=== PATIENT | female | born 1985 | race Caucasian/White ===

== ENCOUNTER 2018-01-29 19:49 | Emergency (ER) | payer OTHER, SELFPAY ==
[2018-01-29] MEDS ORDERED: KETOROLAC 30 MG/ML INJ ONE (20:32)
[2018-01-29] MEDS ORDERED: ONDANSETRON 4 MG/2 ML VIAL ONE (20:32)
[2018-01-29] MEDS ORDERED: PANTOPRAZOLE 40 MG INJ ONE (20:32)
[2018-01-29] MEDS ORDERED: NA CHLORIDE 0.9% 1,000 ML ONE (20:33)
[2018-01-29 20:34] LABS: Absolute Lymphocytes (CBC) 1.4 K/uL (0.7-4.9); Absolute Monocytes 0.6 K/uL (0.1-1.3); Absolute Neutrophil 10.6 K/uL (1.8-8.0); Basophils % 0.2 % (0-1.3); Eosinophils % 0.2 % (0-4.4); Hematocrit 40.3 % (36.0-45.0); Lymphocytes % 11.1 % (15.3-44.8); MCV 81.5 fL (80-100); MPV 8.6 fL (7.6-11.3); Monocytes % 4.5 % (3.3-12.3); RBC Red Blood Cell Count 4.95 M/uL (3.86-4.86)
--- NOTE | 2018-01-29 20:46 | RAD REPORT ---
EXAM DESCRIPTION: US - Abdomen Exam Limited - 01/29/2018 8:40 pm CLINICAL HISTORY: ABD PAIN COMPARISON: No comparisons FINDINGS: The gallbladder demonstrates distention with multiple stones. No pericholecystic fluid or gallbladder wall thickening. The common bile duct is normal measuring 7 mm, mildly enlarged. The liver demonstrates no findings of intrahepatic biliary dilatation. IMPRESSION: Gallbladder distension with cholelithiasis. 7 mm common bile duct, mildly prominent. Followup MRCP would be recommended to evaluate for choledoch olithiasis.
[2018-01-29 20:52] LABS: Albumin 4.3 g/dL (3.4-5.0); Bilirubin Direct 0.9 mg/dL (0-0.2); Bilirubin Total 1.8 mg/dL (0.2-1.0); Potassium 4.1 mmol/L (3.5-5.1); Protein, Total 8.1 g/dL (6.4-8.2)
--- NOTE | 2018-01-29 21:15 | ER ---
Nurse's Notes [facility] Name: Britney Stallworth Age: 33 yrs Sex: Female : 1985 Arrival Date: 01/29/2018 Time: 19:51 Bed 14 Private MD: None, None Diagnosis: Choledocholithiasis Presentation: 01/29 20:04 Presenting complaint: Patient states: Nausea, vomiting, and epigastric pain since noon aj1 today. Denies diarrhea. Denies fever. Transition of care: patient was not received from another setting of care. Onset of symptoms was January 29, 2018 at 12:00. Risk Assessment: Do you want to hurt yourself or someone else? Patient reports no desire to harm self or others. Initial Sepsis Screen: Does the patient meet any 2 criteria? No. Patient's initial sepsis screen is negative. Does the patient have a suspected source of infection? No. Patient's initial sepsis screen is negative. Care prior to arrival: None. 20:04 Method Of Arrival: Ambulatory aj1 20:04 Acuity: MAYTE 3 aj1 Triage Assessment: 20:05 General: Appears in no apparent distress. uncomfortable, Behavior is calm, cooperative, aj1 appropriate for age. Pain: Complains of pain in epigastric area Pain currently is 6 out of 10 on a pain scale. Neuro: Level of Consciousness is awake, alert, obeys commands. Cardiovascular: Patient's skin is warm and dry. Respiratory: Airway is patent Respiratory effort is even, unlabored, Respiratory pattern is regular, symmetrical. GI: Reports upper abdominal pain, nausea, vomiting, Patient currently denies diarrhea. 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 - Social history:: Smoking status: Patient/guardian denies using tobacco. - Ebola Screening: : Patient denies travel to an Ebola-affected area in the 21 days before illness onset. Screenin:32 Abuse screen: Denies threats or abuse. Denies injuries from another. Nutritional ak1 screening: No deficits noted. Tuberculosis screening: No symptoms or risk factors identified. Fall Risk None identified. Assessment: 20:33 General: Appears uncomfortable, Behavior is calm, cooperative. Pain: Complains of pain ak1 in right upper quadrant and abdomen and epigastric area. Neuro: No deficits noted. Cardiovascular: No deficits noted. Respiratory: No deficits noted. GI: Abdomen is flat, Bowel sounds present X 4 quads. Reports epigastric pain, nausea, vomiting, since noon today. : No signs and/or symptoms were reported regarding the genitourinary system. EENT: No signs and/or symptoms were reported regarding the EENT system. Derm: No signs and/or symptoms reported regarding the dermatologic system. Musculoskeletal: No signs and/or symptoms reported regarding the musculoskeletal system. 20:57 Reassessment: Patient appears in no apparent distress at this time. No changes from ak1 previously documented assessment. Patient is alert, oriented x 3, equal unlabored respirations, skin warm/dry/pink. 20:59 Reassessment: ERP at bedside, pt informed of transfer status, pt crying. will continue ak1 to monitor. 21:48 Reassessment: report given to [facility]. ak1 Vital Signs: 20:05 BP 111 / 52; Pulse 78; Resp 16; Temp 98.5; Pulse Ox 100% on R/A; Height 5 ft. 2 in. aj1 (157.48 cm) (R); Pain 6/10; 20:30 BP 144 / 81; Pulse 85; Resp 18; Temp 98.4; Pulse Ox 100% on R/A; ak1 21:00 BP 147 / 75; Pulse 94; Resp 18; Temp 98.3(O); Pulse Ox 100% on R/A; Pain 2/10; ak1 21:21 BP 119 / 74; Pulse 80; Resp 18; Temp 98.3(O); Pulse Ox 100% on R/A; Pain 2/10; ak1 21:28 Weight 49.9 kg (R); ak1 21:28 Body Mass Index 20.12 (49.90 kg, 157.48 cm) ak1 ED Course: 19:51 Patient arrived in ED. es 19:51 None, None is Private Physician. es 20:05 Triage completed. aj1 20:05 Arm band placed on Patient placed in an exam room. aj1 20:08 Syeda David, RN is Primary Nurse. ak1 20:08 [facility]rera [facility]C [facility]. kb 20:08 Raffi Dumont MD is Attending Physician. kb 20:24 Initial lab(s) drawn, by pa, sent to lab. Urine collected: clean catch specimen. ak1 Inserted saline lock: 20 gauge in left antecubital area, using aseptic technique. Blood collected. 20:32 No provider procedures requiring assistance completed. ak1 20:33 Patient has correct armband on for positive identification. Placed in gown. Bed in low ak1 position. Call light in reach. Side rails up X 1. Pulse ox on. NIBP on. Door closed. Lights dimmed. Warm blanket given. 20:41 US Abdomen Limited In Process Unspecified. EDMS 20:58 Patient transferred, IV remains in place. ak1 Administered Medications: 20:31 Drug: ProTONIX 40 mg Route: IVP; Site: left antecubital; ak1 20:45 Follow up: Response: No adverse reaction ak1 20:32 Drug: Zofran 4 mg Route: IVP; Site: left antecubital; ak1 20:45 Follow up: Response: No adverse reaction ak1 20:32 Drug: TORadol 30 mg Route: IVP; Site: left antecubital; ak1 20:45 Follow up: Response: No adverse reaction ak1 20:43 Drug: NS 0.9% 1000 ml Route: IV; Rate: 1000 ml; Site: left antecubital; ak1 21:49 Follow up: IV Status: Completed infusion ak1 Outcome: 20:58 Condition: stable ak1 20:58 Instructed on the need for transfer. 21:15 ER care complete, transfer ordered by . kb 21:32 Transferred by ground EMS to [facility], Transfer form completed. ak1 X-rays sent w/ patient. Note: report called to Ariana SMITH for bed 1662 21:49 Patient left the ED. ak1 Signatures: Dispatcher [employer] EDKY Bina Cabrera FNP-C FNP-Ckb Johnson, Angela, RN RN aj1 Jenny Bello Amber, RN RN ak1 Corrections: (The following items were deleted from the chart) 21:01 20:56 BP 144 / 81; Pulse 85bpm; Resp 18bpm; Pulse Ox 100% RA; Temp 98.4F; ak1 ak1
--- NOTE | 2018-01-29 21:16 | EDPHYS ---
Physician Documentation [facility] Name: Britney Stallworth Age: 33 yrs Sex: Female : 1985 Arrival Date: 01/29/2018 Time: 19:51 Bed 14 Private MD: None, None ED Physician Raffi Dumont HPI: 01/29 20:34 This 33 yrs old Female presents to ER via Ambulatory with complaints of kb Vomiting, Abdominal Pain. 20:34 The patient presents with abdominal pain in the epigastric area, in the upper abdomen. kb Onset: The symptoms/episode began/occurred today, at 12:00. The symptoms do not radiate. Associated signs and symptoms: Pertinent positives: nausea and vomiting, Pertinent negatives: anorexia, blood in stools, chest pain, constipation, diarrhea, dysuria, fever, headache, hematuria, palpitations, shortness of breath, vaginal discharge, vomiting blood. The symptoms are described as constant, sharp. Modifying factors: The symptoms are alleviated by nothing, the symptoms are aggravated by pressure. Severity of pain: At its worst the pain was moderate in the emergency department the pain is unchanged. The patient has not experienced similar symptoms in the past. The patient has not recently seen a physician. 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 - Social history:: Smoking status: Patient/guardian denies using tobacco. - Ebola Screening: : Patient denies travel to an Ebola-affected area in the 21 days before illness onset. ROS: 20:33 Constitutional: Negative for fever, chills, and weight loss, Neck: Negative for injury, kb pain, and swelling, Cardiovascular: Negative for chest pain, palpitations, and edema, Respiratory: Negative for shortness of breath, cough, wheezing, and pleuritic chest pain, Back: Negative for injury and pain, : Negative for injury, bleeding, discharge, and swelling, MS/Extremity: Negative for injury and deformity, Skin: Negative for injury, rash, and discoloration, Neuro: Negative for headache, weakness, numbness, tingling, and seizure. 20:33 Abdomen/GI: Positive for abdominal pain, nausea and vomiting, Negative for diarrhea, constipation, abdominal cramps, abdominal distension, anorexia. Exam: 20:31 Constitutional: This is a well developed, well nourished patient who is awake, alert, kb and in no acute distress. Head/Face: Normocephalic, atraumatic. Chest/axilla: Normal chest wall appearance and motion. Nontender with no deformity. No lesions are appreciated. Cardiovascular: Regular rate and rhythm with a normal S1 and S2. No gallops, murmurs, or rubs. Normal PMI, no JVD. No pulse deficits. Respiratory: Lungs have equal breath sounds bilaterally, clear to auscultation and percussion. No rales, rhonchi or wheezes noted. No increased work of breathing, no retractions or nasal flaring. Back: No spinal tenderness. No costovertebral tenderness. Full range of motion. Skin: Warm, dry with normal turgor. Normal color with no rashes, no lesions, and no evidence of cellulitis. MS/ Extremity: Pulses equal, no cyanosis. Neurovascular intact. Full, normal range of motion. Neuro: Awake and alert, GCS 15, oriented to person, place, time, and situation. Cranial nerves II-XII grossly intact. Motor strength 5/5 in all extremities. Sensory grossly intact. Cerebellar exam normal. Normal gait. 20:31 Abdomen/GI: Inspection: abdomen appears normal, Bowel sounds: normal, in all quadrants, Palpation: soft, in all quadrants, moderate abdominal tenderness, in the right upper quadrant. Vital Signs: 20:05 BP 111 / 52; Pulse 78; Resp 16; Temp 98.5; Pulse Ox 100% on R/A; Height 5 ft. 2 in. aj1 (157.48 cm) (R); Pain 6/10; 20:30 BP 144 / 81; Pulse 85; Resp 18; Temp 98.4; Pulse Ox 100% on R/A; ak1 21:00 BP 147 / 75; Pulse 94; Resp 18; Temp 98.3(O); Pulse Ox 100% on R/A; Pain 2/10; ak1 21:21 BP 119 / 74; Pulse 80; Resp 18; Temp 98.3(O); Pulse Ox 100% on R/A; Pain 2/10; ak1 21:28 Weight 49.9 kg (R); ak1 21:28 Body Mass Index 20.12 (49.90 kg, 157.48 cm) ak1 MDM: 20:08 Patient medically screened. kb 20:31 Data reviewed: vital signs, nurses notes. Data interpreted: Pulse oximetry: on room air kb is 100 %. Interpretation: normal. 20:59 Counseling: I had a detailed discussion with the patient and/or guardian regarding: the kb historical points, exam findings, and any diagnostic results supporting the discharge/admit diagnosis, lab results, radiology results, the need to transfer to another facility, [facility] does not immediately have the required specialist. 01/29 20:08 Order name: Amylase, Serum; Complete Time: 20:53 kb 01/29 20:08 Order name: Basic Metabolic Panel; Complete Time: 20:53 kb 01/29 20:08 Order name: CBC with Diff; Complete Time: 20:53 kb 01/29 20:08 Order name: Hepatic Function; Complete Time: 20:53 kb 01/29 20:08 Order name: Lipase; Complete Time: 20:53 kb 01/29 20:25 Order name: Urine Dipstick--Ancillary (enter results); Complete Time: 21:40 mw2 01/29 20:08 Order name: Urine Test (obtain specimen); Complete Time: 20:23 kb 01/29 20:08 Order name: IV Saline Lock; Complete Time: 20:24 kb 01/29 20:18 Order name: US Abdomen Limited; Complete Time: 20:49 kb 01/29 20:25 Order name: Urine --Ancillary (enter results); Complete Time: 21:40 mw2 01/29 20:08 Order name: Labs collected and sent; Complete Time: 20:24 kb 01/29 20:08 Order name: Urine Dipstick-Ancillary (obtain specimen); Complete Time: 20:23 kb Administered Medications: 20:31 Drug: ProTONIX 40 mg Route: IVP; Site: left antecubital; ak1 20:45 Follow up: Response: No adverse reaction ak1 20:32 Drug: Zofran 4 mg Route: IVP; Site: left antecubital; ak1 20:45 Follow up: Response: No adverse reaction ak1 20:32 Drug: TORadol 30 mg Route: IVP; Site: left antecubital; ak1 20:45 Follow up: Response: No adverse reaction ak1 20:43 Drug: NS 0.9% 1000 ml Route: IV; Rate: 1000 ml; Site: left antecubital; ak1 21:49 Follow up: IV Status: Completed infusion ak1 Disposition: 21:55 Co-signature as Attending Physician, Raffi Dumont MD I agree with the assessment and kdr plan of care. Disposition: 01/29/18 21:15 Transfer ordered to [facility]. Diagnosis is Choledocholithiasis. - Reason for transfer: Higher level of care. - Accepting physician is [facility]. - Condition is Stable. - Problem is new. - Symptoms are unchanged. Signatures: Dispatcher [employer] EDBina Will, MARINE FIREMAN-C MARINE FIREMAN-Radha Potter, RN RN aj1 Raffi Dumont MD MD kdr Krenek, Amber RN RN ak1 Corrections: (The following items were deleted from the chart) 21:15 21:15 01/29/2018 21:15 Transfer ordered to [facility]. Diagnosis is kb Choledocholithiasis. Reason for transfer: Higher level of care. Accepting physician is [facility]. Condition is Fair. Problem is new. Symptoms are unchanged. kb 21:49 21:15 01/29/2018 21:15 Transfer ordered to [facility]. Diagnosis is ak1 Choledocholithiasis. Reason for transfer: Higher level of care. Accepting physician is [facility]. Condition is Stable. Problem is new. Symptoms are unchanged. kb
[2018-01-29 21:25] LABS: Urine Blood TRACE (NEG); Urine Glucose NEGATIVE (NEG); Urine Protein NEGATIVE (NEG); Urine pH 7.5 (5.0-7.0)
== END 2018-01-29 21:49 | disposition short-term general hospital (02) ==
LOC: ER 19:49
DX: K80.50 Calculus of bile duct without cholangitis or cholecystitis without obstruction (principal); Z88.0 Allergy status to penicillin
CPT/HCPCS: 36415; 76705; 80048; 80076; 81003; 81025; 82150; 83690; 85025; 96361; 96374; 96375; 99285; C9113; J2405; J7030